=== PATIENT | female | born 1950 | race Caucasian/White ===

== ENCOUNTER 2020-10-15 12:33 | Day surgery (SDC) | payer OTHER, MEDICARE ==
[2020-10-14 09:18] VITALS: BMI 27.1
[2020-10-15] MEDS ORDERED: LIDOCAINE 1%/EPI 1:100000 (20 ML MULTI DOSE VIAL) ONE ×2 (13:38→14:48)
[2020-10-15] MEDS ORDERED: BACITRACIN 15 GM TUBE TOPICAL OINTMENT ONE (13:43)
[2020-10-15] MEDS ORDERED: MIDAZOLAM HCL 2 MG/2 ML SINGLE DOSE VIAL ONE (13:49)
[2020-10-15] MEDS ORDERED: PROPOFOL 20 ML ONE (13:49)
[2020-10-15] MEDS ORDERED: SEVOFLURANE 250 ML BTL ONE (13:50)
[2020-10-15] MEDS ORDERED: ceFAZolin SODIUM 1 GM VIAL ONE (14:32)
[2020-10-15] MEDS ORDERED: ePHEDrine SULFATE 50 MG/1 ML AMPULE ONE (14:38)
[2020-10-15] MEDS ORDERED: LIDOCAINE 1%/EPI 1:100000 (20 ML MULTI DOSE VIAL) INF ONE ×2 (14:47)
[2020-10-15] MEDS ORDERED: ESMOLOL HCL 100,000 MCG/10 ML VIAL ONE (14:57)
[2020-10-15] MEDS ORDERED: ONDANSETRON 4 MG/2 ML VIAL ONE ×2 (15:05→16:37)
[2020-10-15] MEDS ORDERED: DEXAMETHASONE SOD PHOSPHATE 4 MG/1 ML VIAL ONE (15:05)
[2020-10-15] MEDS ORDERED: PHENYLEPHRINE HCL 10 MG/1 ML SINGLE DOSE VIAL ONE (15:10)
[2020-10-15] MEDS ORDERED: NITROGLYCERIN 2% OINTMENT - 1GM PACKET TD ONE (16:33)
[2020-10-15] MEDS ORDERED: BSS (NA/CA/MG/K) BALANCED SALT SOLUTION OPHTH SOLN 15 ML BOTTLE ONE (16:38)
[2020-10-15] MEDS ORDERED: oxyCODONE HCL 5 MG TABLET PO PRN ×2 (17:27→18:35)
[2020-10-15] MEDS ORDERED: ACETAMINOPHEN 1000 MG/100 ML VIAL (NON FORMULARY) IVPB ONE (17:27)
[2020-10-15] MEDS ORDERED: ONDANSETRON 4 MG/2 ML VIAL IVPUSH PRN (17:27)
[2020-10-15] MEDS ORDERED: LACTATED RINGERS SOLUTION 1,000 ML IV SCH ×2 (17:30→18:45)
[2020-10-15] MEDS ORDERED: ONDANSETRON 4 MG/2 ML VIAL IVPB PRN (18:35)
[2020-10-15] MEDS ORDERED: MORPHINE SULFATE 2 MG/ML VIAL IVPUSH PRN ×2 (19:48→22:34)
[2020-10-15] MEDS: CEFAZOLIN 1 GM/D5W 1 GM/50 ML BAG IVPB SCH (20:30)
[2020-10-15] MEDS ORDERED: ATORVASTATIN CA 40 MG TABLET (FP) PO SCH (22:00)
[2020-10-15] MEDS ORDERED: LOSARTAN POTASSIUM 25 MG TABLET PO SCH (22:00)
[2020-10-15] MEDS: ONDANSETRON 4 MG/2 ML VIAL IVPB PRN (23:49)
[2020-10-16] MEDS ORDERED: ACETAMINOPHEN 1000 MG/100 ML VIAL (NON FORMULARY) IVPB ONE (00:15)
[2020-10-16] MEDS ORDERED: LORazepam 1 MG TABLET PO ONE (00:15)
[2020-10-16] MEDS: CEFAZOLIN 1 GM/D5W 1 GM/50 ML BAG IVPB SCH ×2 (02:45→08:51)
[2020-10-16] MEDS: ONDANSETRON 4 MG/2 ML VIAL IVPB PRN (05:32)
[2020-10-16] MEDS ORDERED: INSULIN SLIDING SCALE (NOVOLOG) 1 VIAL SQ SCH (07:00)
[2020-10-16] MEDS ORDERED: PROMETHAZINE HCL 25 MG/1 ML VIAL IVPUSH ONE (07:07)
[2020-10-16] MEDS ORDERED: TRIMETHOBENZAMIDE HCL 200MG/2ML INJ IM PRN (08:18)
[2020-10-16 08:34] VITALS: BP 137/64; PULSE 72; TEMP 97.9
[2020-10-16] MEDS ORDERED: ACETAMINOPHEN 500 MG TABLET (FP) PO SCH (10:00)
[2020-10-16] MEDS ORDERED: ATENOLOL 50 MG TABLET (FP) PO SCH (10:00)
== END 2020-10-16 10:32 | disposition home or self-care (01) ==
LOC: FASUSAT 12:33 → FM/S 19:14 → FASUSAT 10-16 10:32
PROVIDERS: ATTEND Plastic Surgery
PROC: 0HR1X73 Replacement of Face Skin with Autologous Tissue Substitute, Full Thickness, External Approach (ICD-10-PCS; 2020-10-15)
PROC: 0HBAXZZ Excision of Inguinal Skin, External Approach (ICD-10-PCS; 2020-10-15)
PROC: 0HX1XZZ Transfer Face Skin, External Approach (ICD-10-PCS; 2020-10-15)
PROC: 0JX10ZB Transfer Face Subcutaneous Tissue and Fascia with Skin and Subcutaneous Tissue, Open Approach (ICD-10-PCS; principal; 2020-10-15 15:03)
DX: C44.311 Basal cell carcinoma of skin of nose (principal)
CPT/HCPCS: 82962; 94760; J0131

== ENCOUNTER 2020-11-11 06:12 | Day surgery (SDC) | payer OTHER, MEDICARE ==
[2020-11-08 13:45] VITALS: BMI 27.3
[2020-11-11] MEDS ORDERED: NITROGLYCERIN 2% OINTMENT - 1GM PACKET TD ONE (07:10)
[2020-11-11] MEDS ORDERED: LIDOCAINE 1%/EPI 1:100000 (20 ML MULTI DOSE VIAL) ONE (07:10)
[2020-11-11] MEDS ORDERED: BACITRACIN 15 GM TUBE TOPICAL OINTMENT ONE (07:11)
[2020-11-11] MEDS ORDERED: MIDAZOLAM HCL 2 MG/2 ML SINGLE DOSE VIAL ONE (07:46)
[2020-11-11] MEDS ORDERED: SUCCINYLCHOLINE CHLORIDE 200 MG/10 ML SYRINGE ONE (07:46)
[2020-11-11] MEDS ORDERED: PROPOFOL 20 ML ONE ×5 (07:46→09:06)
[2020-11-11] MEDS ORDERED: EPHEDRINE SULFATE/0.9% NACL/PF 50 MG/10 ML SYRINGE NR ONE (07:46)
[2020-11-11] MEDS ORDERED: LIDOCAINE 1%/EPI 1:100000 (20 ML MULTI DOSE VIAL) IJ ONE (08:15)
[2020-11-11] MEDS ORDERED: ONDANSETRON 4 MG/2 ML VIAL IVPUSH PRN (09:35)
[2020-11-11] MEDS ORDERED: oxyCODONE HCL 5 MG TABLET PO PRN ×4 (09:35→09:39)
[2020-11-11] MEDS ORDERED: ONDANSETRON 4 MG/2 ML VIAL IVPB PRN (09:39)
[2020-11-11] MEDS ORDERED: LACTATED RINGERS SOLUTION 1,000 ML IV SCH (09:45)
[2020-11-11] MEDS ORDERED: ACETAMINOPHEN INJECTION 100 ML IVPB ONE (09:50)
[2020-11-11] MEDS ORDERED: ACETAMINOPHEN 1000 MG/100 ML VIAL (NON FORMULARY) IVPB ONE (09:53)
[2020-11-11 10:25] VITALS: TEMP 97.9
[2020-11-11 11:00] VITALS: BP 150/82; PULSE 74
== END 2020-11-11 11:00 | disposition home or self-care (01) ==
LOC: FASU 06:12
PROVIDERS: ATTEND Plastic Surgery
PROC: 0H81XZZ Division of Face Skin, External Approach (ICD-10-PCS; principal; 2020-11-11 08:29)
DX: C44.321 Squamous cell carcinoma of skin of nose (principal)
CPT/HCPCS: 82962; 94760; J0131